=== PATIENT | male | born 1985 | race African-American/Black ===

== ENCOUNTER 2022-01-28 22:30 | Emergency (ER) | payer SELFPAY ==
[~2022-01-28] VITALS: Ht 177.8 cm; Wt 95.0 kg
[2022-01-29 00:25] VITALS: BP 152/83
== END 2022-01-29 00:28 | disposition home or self-care (01) ==
LOC: ER 22:30
DX: R56.9 Unspecified convulsions (principal); Z91.14 Patient's other noncompliance with medication regimen
CPT/HCPCS: 99283